=== PATIENT | male | born 1985 | race Hispanic/Latino ===

== ENCOUNTER → 2024-01-10 | Outpatient (CLI) | payer OTHER ==
[~2024-01-10] MED LIST: METHI10 PO; METO25 PO
== END | disposition home or self-care (01) ==
LOC: OIH 10:32
PROVIDERS: ATTEND Internal Medicine Cardiovascular Disease
DX: Z13.6 Encounter for screening for cardiovascular disorders (principal)
CPT/HCPCS: 75571